=== PATIENT | male | born 1945 | race Caucasian/White ===

== ENCOUNTER 2017-12-29 12:44 | Emergency (ER) | payer MEDICARE, OTHER ==
[2017-12-29 12:59] VITALS: BP 141/86
[2017-12-29 13:22] LABS: BILIRUBIN,URINE NEGATIVE (NEGATIVE); GLUCOSE, URINE (UA) NEGATIVE (NEGATIVE); KETONES,URINE (UA) NEGATIVE (NEGATIVE); LEUKOCYTE ESTERASE, URINE NEGATIVE (NEGATIVE); NITRITE,URINE NEGATIVE (NEGATIVE); OCCULT BLOOD,URINE NEGATIVE (NEGATIVE); PROTEIN,URINE NEGATIVE (NEGATIVE); UROBILINOGEN,URINE 0.2 (NORMAL) E.U./dL (NORMAL)
[2017-12-29 13:23] LABS: CLARITY,URINE CLEAR (CLEAR)
--- NOTE | 2017-12-29 14:34 | ED Physician Documentation ---
History of Present Illness - Stated complaint Stated Complaint: GLF/MALE - Chief complaint Chief Complaint: General - History obtained from History obtained from: Patient, Family - History of Present Illness Timing: Last night - Additonal information Additional information: 72-year-old male had a fall about a week ago and has had some pain in his mid back which has not bothered him too much. He has developed urinary frequency and urgency and was getting out of bed a lot last night and the patient's could tell that he was not feeling well when he got out of bed. She watched him wince in pain each time he got up. He does not usually get up as many times per night as he was getting up last night. She is worried about urinary tract infection. The patient has some dementia and is not able to provide significant history. The is able to provide adequate history and her concern as there may be infection. Review of Systems Constitutional: denies: Fever, Chills, Myalgias, Fatigue Eyes: denies: Decreased vision Ears: denies: Ear pain Nose: denies: Congestion Throat: denies: Sore throat Cardiac: denies: Chest pain / pressure, Palpitations Respiratory: denies: Dyspnea, Cough GI: denies: Abdominal Pain, Nausea, Vomiting : reports: Dysuria, Frequency Skin: denies: Rash, Lesions Musculoskeletal: reports: Back pain. denies: Neck pain, Extremity pain Neurologic: denies: Generalized weakness, Focal weakness, Numbness PD PAST MEDICAL HISTORY - Past Medical History Past Medical History: Yes Cardiovascular: High cholesterol Neuro: Dementia, Other : Frequency - Past Surgical History Past Surgical History: Yes Ortho: Other - Present Medications Home Medications: Ambulatory Orders Medication Instructions Recorded Confirmed Cholestrol Medication 1 tab PO DAILY 12/29/17 Memantine HCl [Namenda] 1 tab PO DAILY 12/29/17 12/29/17 Rivastigmine Tartrate 3 tab PO DAILY 12/29/17 12/29/17 [Rivastigmine] Tamsulosin [Flomax] 2 tab PO DAILY 12/29/17 12/29/17 Trospium Chloride 1 tab PO DAILY 12/29/17 12/29/17 - Allergies Allergies/Adverse Reactions: Allergies Allergy/AdvReac Type Severity Reaction Status Date / Time shellfish derived Allergy Anaphylaxis Verified 12/29/17 12:58 - Social History Does the pt smoke?: No Smoking Status: Never smoker Does the pt drink ETOH?: Yes ETOH Use: Wine, Beer Does the pt have substance abuse?: No - Immunizations Immunizations are current?: Yes - POLST Patient has POLST: No PD ED PE NORMAL - Vitals Vital signs reviewed: Yes (Hypertensive mild) - General General: No acute distress, Well developed/nourished, Other (The patient is alert and conversive but does not answer questions directly he usually defers to his . He does acknowledge that he has some dementia.) - HEENT HEENT: Atraumatic, PERRL, EOMI - Neck Neck: Supple, no meningeal sign, No bony TTP - Respiratory Respiratory: No respiratory distress - Back Back: No CVA TTP, No spinal TTP, Other (There is tenderness to the paraspinous muscles at the TL junction. The muscles are firm and consistent with spasm. The muscles above and below this do not have spasm.) - Derm Derm: Normal color, Warm and dry, No rash - Extremities Extremities: No deformity, No edema - Neuro Neuro: Alert and oriented X 3, No motor deficit, No sensory deficit, Normal speech Eye Opening: Spontaneous Motor: Obeys Commands Verbal: Oriented GCS Score: 15 - Psych Psych: Normal mood, Normal affect Results - Vitals Vitals: Vital Signs - 24 hr 12/29/17 12:58 Temperature 36.2 C L Heart Rate 77 Respiratory 20 Rate Blood Pressure 141/86 H O2 Saturation 98 Oxygen O2 Source Room air - Labs Labs: Laboratory Tests 12/29/17 13:05 Urine Color YELLOW Urine Clarity CLEAR Urine pH 6.0 Ur Specific Frederic 1.020 Urine Protein NEGATIVE Urine Glucose (UA) NEGATIVE Urine Ketones NEGATIVE Urine Occult Blood NEGATIVE Urine Nitrite NEGATIVE Urine Bilirubin NEGATIVE Urine Urobilinogen 0.2 (NORMAL) Ur Leukocyte Esterase NEGATIVE Ur Microscopic Review NOT INDICATED Urine Culture Comments NOT INDICATED Procedures - Bedside sono Bedside sono by EMP: After the patient voids his bladder is imaged and is completely full of urine. - IVC sono (time) 1435 Bedside IVC sono: IVC measures (cm) (1.09), IVC collapsed c insp (cm) (complete) , Dehydration (est 1.5 liter deficit) PD MEDICAL DECISION MAKING - ED course Complexity details: reviewed old records, reviewed results, re-evaluated patient , considered differential, d/w patient, d/w family ED course: 72-year-old male with urinary frequency and dysuria voiding small amounts has a negative urinalysis and on interrogation of the inferior vena cava he does appear to be dehydrated. I suspect the concentrated urine is irritating his bladder. In addition the patient has muscle spasm in his mid back. Dehydration appears to play us role in this. I have asked the patient's to rehydrate the patient with 2 quarts of Gatorade today. She will stay after him for his water intake. We expect symptoms to resolve in 1-2 days. After contemplating this patients case I checked his post void residual and found he had a full bladder and a stevens was placed. Departure - Departure Disposition: 01 Home, Self Care Clinical Impression: Acute urinary retention, Dehydration Instructions: ED Dehydration, ED Retention Urinary Male, ED Catheter Care Stevens Follow-Up: Ronnie Diaz MD [Primary Care Provider] - Comments: Today it appears Daniel has had acute urinary retention and we found about 600 mL 's of urine in the bladder. With this amount of urine in the bladder from retention he may be able to have a voiding trial early this week. Stop the Trospium and follow-up with your urologist this week.
== END 2017-12-29 16:16 | disposition home or self-care (01) ==
LOC: ED 12:44
DX: E86.0 Dehydration (principal); R33.9 Retention of urine, unspecified; F03.90 Unspecified dementia, unspecified severity, without behavioral disturbance, psychotic disturbance, mood disturbance, and anxiety
CPT/HCPCS: 51702; 51798; 81001; 81003; 87086; 99283; 99284